=== PATIENT | male | born 1945 | race Caucasian/White ===

== ENCOUNTER 2019-04-12 12:11 | Inpatient (IN) ==
[2019-04-12 12:52] LABS: Basophils # 0.1 K/mcL (0.0-0.2); Basophils % 0.4 %; Eosinophils % 0.1 %; Hematocrit 42.7 % (37.5-50.1); Hemoglobin 14.3 g/dL (12.9-16.9); Immature Granulocytes % 0.7 % (0-4); Lymphocytes # 1.7 K/mcL (0.6-4.6); Lymphocytes % 12.9 %; Mean Corpuscular HGB Conc 33.5 g/dL (31.6-35.5); Mean Corpuscular Hemoglobin 33.4 pg (28.0-33.3); Mean Corpuscular Volume 99.8 fL (83.0-100.0); Mean Platelet Volume 10.3 fL (9.4-12.4); Monocytes # 1.2 K/mcL (0.0-1.3); Monocytes % 8.9 %; Neutrophils # 10.4 K/mcL (1.6-8.9); Platelet Count 358 K/mcL (140-400); Red Blood Count 4.28 M/mcL (4.19-5.50); Red Cell Distribution Width 14.7 % (11.5-14.5); White Blood Count 13.5 K/mcL (4.3-11.1)
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
[2019-04-12 13:11] LABS: Calcium 10.6 mg/dL (8.6-10.3); Potassium 4.6 mEq/L (3.5-5.1)
[2019-04-12] MEDS ORDERED: 0.9 % Sodium Chloride 1,000 ML IVC ONE (13:43)
[2019-04-12] MEDS ORDERED: Nicotine 21 MG PATCH.TD24 TD STA (14:03)
[2019-04-12] MEDS ORDERED: Ondansetron 4 MG/2 ML VIAL IVP PRN (15:35)
[2019-04-12] MEDS ORDERED: Naloxone 0.4 MG/ML INJ IVP PRN (15:35)
[2019-04-12] MEDS ORDERED: ALPRAZolam 1 MG TABLET PO PRN (15:40)
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
--- NOTE | 2019-04-12 16:22 | Electrocardiograph Report ---
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
[2019-04-12] MEDS: Sodium Bicarbonate 75 MEQ in 0.45 % Sodium Chloride 1,000 ML IVC SCH (17:06)
[2019-04-12] MEDS: *HR* Heparin 5,000 UNIT/ML VIAL SQ SCH (17:06)
[2019-04-12] MEDS: *HR* HYDROcodone/Acet 5/325 mg TABLET PO PRN (17:55)
[2019-04-12] MEDS: Isosorbide MONOnitrate (24 HR) 30 MG TAB.ER.24H PO SCH (20:17)
[2019-04-13 02:24] LABS: Bilirubin,Urine Moderate (Negative); Blood,Urine Large (Negative); Color,Urine Red (Yellow); Glucose,Urine (UA) Normal (Normal); Ketones,Urine 40 mg/dL (Negative); Leukocyte Esterase,Urine Trace (Negative); Nitrite,Urine Negative (Negative); Protein,Urine 100 mg/dL (Neg-Trace); Specific Gravity,Urine 1.012 (1.010-1.025); Urobilinogen,Urine Normal (Normal)
[2019-04-13 02:26] LABS: Clarity,Urine Turbid (Clear)
[2019-04-13] MEDS ORDERED: Haloperidol Lactate 5 MG/ML VIAL IVP ONE (03:23)
[2019-04-13] MEDS ORDERED: *HR* Promethazine 25 MG/ML VIAL IVP ONE ×2 (03:23→21:38)
[2019-04-13] MEDS: Sodium Bicarbonate 75 MEQ in 0.45 % Sodium Chloride 1,000 ML IVC SCH ×4 (03:37→22:16)
[2019-04-13 05:41] LABS: Albumin 3.9 g/dL (3.5-5.7); Albumin/Globulin Ratio 1.4 (1.1-2.2); Bilirubin,Total 0.6 mg/dL (0.3-1.0); Calcium 9.6 mg/dL (8.6-10.3); Globulin 2.8 g/dL (2.4-3.5); Magnesium 2.1 mg/dL (1.6-2.6); Potassium 4.1 mEq/L (3.5-5.1); Total Protein 6.7 g/dL (6.4-8.9)
[2019-04-13] MEDS: *HR* Heparin 5,000 UNIT/ML VIAL SQ SCH ×2 (05:46→18:19)
[2019-04-13] MEDS: *HR* HYDROcodone/Acet 5/325 mg TABLET PO PRN ×2 (08:16→18:19)
[2019-04-13] MEDS: FLUoxetine 20 MG CAPSULE PO SCH (08:17)
[2019-04-13] MEDS: Diltiazem CD (24hr) 120 MG CAPSULE PO SCH (08:17)
[2019-04-13] MEDS: Isosorbide MONOnitrate (24 HR) 30 MG TAB.ER.24H PO SCH ×2 (08:17→20:39)
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
[2019-04-13] MEDS: cefTRIAXone 1,000 MG in Water for inj. (sterile) 10 ML IVP SCH ×2 (13:11→13:49)
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
[2019-04-13] MEDS ORDERED: *HR* LORazepam 2 MG/ML VIAL IVP ONE ×2 (13:39→14:02)
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
[2019-04-14 02:40] LABS: Basophils % 0.4 %; Eosinophils # 0.1 K/mcL (0.0-0.6); Eosinophils % 0.5 %; Immature Granulocytes % 0.8 % (0-4); Lymphocytes # 2.1 K/mcL (0.6-4.6); Lymphocytes % 19.1 %; Mean Corpuscular HGB Conc 33.8 g/dL (31.6-35.5); Mean Corpuscular Hemoglobin 33.5 pg (28.0-33.3); Mean Corpuscular Volume 99.2 fL (83.0-100.0); Mean Platelet Volume 10.6 fL (9.4-12.4); Monocytes # 1.1 K/mcL (0.0-1.3); Monocytes % 10.1 %; Neutrophils # 7.6 K/mcL (1.6-8.9); Platelet Count 321 K/mcL (140-400); Red Blood Count 3.73 M/mcL (4.19-5.50); Red Cell Distribution Width 14.7 % (11.5-14.5); Segmented Neutrophils % 69.1 %
[2019-04-14 02:46] LABS: Hemoglobin 12.5 g/dL (12.9-16.9)
[2019-04-14 02:57] LABS: Calcium 9.3 mg/dL (8.6-10.3); Magnesium 1.9 mg/dL (1.6-2.6); Phosphorous 2.2 mg/dL (2.7-4.5); Potassium 3.7 mEq/L (3.5-5.1)
[2019-04-14] MEDS: *HR* Heparin 5,000 UNIT/ML VIAL SQ SCH (05:14)
[2019-04-14] MEDS: Sodium Bicarbonate 75 MEQ in 0.45 % Sodium Chloride 1,000 ML IVC SCH (06:12)
[2019-04-14] MEDS ORDERED: *HR* Metoprolol 5 MG/5 ML VIAL IVP ONE (08:50)
[2019-04-14] MEDS: *HR* HYDROcodone/Acet 5/325 mg TABLET PO PRN ×2 (09:11→18:13)
[2019-04-14] MEDS: Isosorbide MONOnitrate (24 HR) 30 MG TAB.ER.24H PO SCH ×3 (09:12→19:57)
[2019-04-14] MEDS: FLUoxetine 20 MG CAPSULE PO SCH ×2 (09:12→09:33)
[2019-04-14] MEDS: cefTRIAXone 1,000 MG in Water for inj. (sterile) 10 ML IVP SCH (09:12)
[2019-04-14] MEDS: Diltiazem CD (24hr) 120 MG CAPSULE PO SCH ×3 (09:14→11:39)
[2019-04-14] MEDS ORDERED: Haloperidol Lactate 5 MG/ML VIAL IVP ONE (09:31)
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
[2019-04-14] MEDS ORDERED: *HR* Morphine 2 MG/ML SYRINGE IVP ONE (09:38)
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
--- NOTE | 2019-04-14 11:10 | Palliative Progress Note ---
Date of Encounter: 04/14/19 Time of Encounter: 10:15 - Assessment and plan (1) Cancer associated pain Current Visit: Yes Status: Acute Assessment and plan: Patient appears comfortable, denies pain for me at present. Continue [place] as ordered. Utilized x2 last 24 hours. (2) Goals of care, counseling/discussion Current Visit: Yes Status: Acute Assessment and plan: Yuridia Brown - listed as contact for this patient did return my call. Began goals of care discussion, however, Yuridia did reveal to me that she is NOT the patient's power of cocoa mill operator and that he does not have any adv directive in place. States that she can no longer participate in his care, and states that none of his children are capable as well. She is supposed to provide me their names and numbers to contact, as patient is still altered, and we need further goals of care discussed. He had hospice in place - however, code status here is DNR/DNI, and he is still receiving fairly aggressive care for cardiac issues. D/W Dr. Long. Will attempt to contact family when she provides me that information. (3) Generalized weakness Current Visit: Yes Status: Acute (4) Metastatic disease Current Visit: Yes Status: Acute (5) Palliative care encounter Current Visit: Yes Status: Acute (6) Rhabdomyolysis Current Visit: Yes Status: Acute Qualifiers: Rhabdomyolysis type: non-traumatic Qualified Code(s): M62.82 - Rhabdomyolysis - Time Spent With Patient Total time spent is greater than 50% in coordination of care (as documented) at patient's floor/unit and/or counseling patient: - Subjective Interval history: Patient went into afib during the night and started on Cardizem drip. Heart rate improved. He remains pleasantly confused. Urology consult noted - indwelling catheter was inserted. Patient denies pain at present. No family present - Constitutional Vitals: Abnormal lab results WBC 13.5 K/mcL (4.3-11.1) H 04/12/19 12:24 RBC 3.73 M/mcL (4.19-5.50) L 04/14/19 02:13 Hgb 12.5 g/dL (12.9-16.9) L D 04/14/19 02:13 Hct 37.0 % (37.5-50.1) L 04/14/19 02:13 MCH 33.5 pg (28.0-33.3) H 04/14/19 02:13 RDW 14.7 % (11.5-14.5) H 04/14/19 02:13 10.4 K/mcL (1.6-8.9) H 04/12/19 12:24 Carbon Dioxide 20 mEq/L (23-29) L 04/13/19 04:19 BUN 35 mg/dL (8-23) H 04/14/19 02:13 1.90 mg/dL (0.70-1.30) H 04/14/19 02:13 Est GFR ( Amer) 42 (> 60) L 04/14/19 02:13 Est GFR (Non-Af Amer) 35 (> 60) L 04/14/19 02:13 301 (280-300) H 04/13/19 04:19 Calcium 10.6 mg/dL (8.6-10.3) H 04/12/19 12:24 Phosphorus 2.2 mg/dL (2.7-4.5) L 04/14/19 02:13 AST 57 Units/L (13-39) H 04/13/19 04:19 124 Units/L (34-104) H 04/13/19 04:19 734 Units/L (30-223) H 04/14/19 02:13 0.04 ng/mL (< 0.04) H* 04/14/19 09:55 Ur Specimen Adequacy See below A 04/13/19 01:47 Red (Yellow) A 04/13/19 01:47 Turbid (Clear) A 04/13/19 01:47 100 mg/dL (Neg-Trace) H 04/13/19 01:47 40 mg/dL (Negative) H 04/13/19 01:47 Large (Negative) H 04/13/19 01:47 Moderate (Negative) H 04/13/19 01:47 Ur Leukocyte Esterase Trace (Negative) H 04/13/19 01:47 Ur Culture Indicated? YES (NO) A 04/13/19 01:47 General appearance: Present: no acute distress - Respiratory Respiratory exam: Present: decreased breath sounds, CTAB - Cardiovascular Cardiovascular exam: Present: irregular rhythm - GI/Abdominal GI/Abdominal exam: Present: normal bowel sounds, soft - Additional comments: Reed with blood tinged urine - Extremities Exam Extremities exam: Present: normal capillary refill, normal inspection Palliative Quality Palliative Quality: Screen for Code Status: NA (Patient unable to participate in this discussion r/t mental status), Screen for Goals of Care: NA, Screen for Pain: Yes, If Pain Regimen Started, Initiate Bowel Regimen: NA, Screen for Nausea/Vomitting: Yes Code Status: 04/12/19 15:35 Resuscitation Status: Active [RES] Routine Comment: Resuscitation Status: [id number] - Labs CBC & Chem 7: 04/14/19 02:13 04/14/19 02:13 Labs: Laboratory Results - last 24 hr 04/14/19 04/14/19 04/14/19 02:13 02:13 02:13 WBC 11.0 RBC 3.73 L Hgb 12.5 L D Hct 37.0 L MCV 99.2 MCH 33.5 H MCHC 33.8 RDW 14.7 H Plt Count 321 MPV 10.6 Immature Gran % 0.8 Seg Neutrophils % 69.1 Lymphocytes % 19.1 Monocytes % 10.1 Eosinophils % 0.5 Basophils % 0.4 Neutrophils # 7.6 Lymphocytes # 2.1 Monocytes # 1.1 Eosinophils # 0.1 Basophils # 0.0 Sodium 140 Potassium 3.7 Chloride 105 Carbon Dioxide 23 BUN 35 H Creatinine 1.90 H Est GFR ( Amer) 42 L Est GFR (Non-Af Amer) 35 L BUN/Creatinine Ratio 18 Glucose 90 Calculated Osmolality 298 Calcium 9.3 Phosphorus 2.2 L Magnesium 1.9 Creatine Kinase 734 H Troponin I 04/14/19 09:55 WBC RBC Hgb Hct MCV MCH MCHC RDW Plt Count MPV Immature Gran % Seg Neutrophils % Lymphocytes % Monocytes % Eosinophils % Basophils % Neutrophils # Lymphocytes # Monocytes # Eosinophils # Basophils # Sodium Potassium Chloride Carbon Dioxide BUN Creatinine Est GFR ( Amer) Est GFR (Non-Af Amer) BUN/Creatinine Ratio Glucose Calculated Osmolality Calcium Phosphorus Magnesium Creatine Kinase Troponin I 0.04 H* Consult Discharge Plan - Plan Referrals: NONE,PCP [Primary Care Provider] -
[2019-04-14] MEDS ORDERED: Aspirin 325 MG TABLET PO ONE (11:35)
[2019-04-14] MEDS ORDERED: Sodium Bicarbonate 75 MEQ in 0.45 % Sodium Chloride 1,000 ML IVC SCH (11:45)
[2019-04-14] MEDS ORDERED: Perflutren Lipid Microsphere 1.3 ML in 0.9 % Sodium Chloride 8.7 ML IVP ONE (12:12)
--- NOTE | 2019-04-14 14:10 | Electrocardiograph Report ---
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
[2019-04-14] MEDS: ALPRAZolam 1 MG TABLET PO SCH ×2 (16:38→19:56)
--- NOTE | 2019-04-14 23:40 | Nephrology Progress Note ---
Date of Encounter: 04/14/19 Time of Encounter: 12:00 - Assessment and Plan (1) MANUEL (acute kidney injury) Current Visit: No Status: Resolved SCr improving at 1.9, GFR 35 UOp noted at 900cc in the past 24hrs CPK improving in the 700s [place] to continue IVF if IV access feasible while awaiting family to decide on goals of care Can encourage po fluids instead Continue to avoid nephrotoxins if possible (2) Rhabdomyolysis Current Visit: Yes Status: Acute As above Qualifiers: Rhabdomyolysis type: non-traumatic Qualified Code(s): M62.82 - Rhabdomyolysis (3) Metastatic disease Current Visit: Yes Status: Acute Palliative care on board, recs appreciated Subjective Interval history: pt seen and examined with ex- at bedside who promptly informed me that she was not the POA and was waiting of this kids to make a decision once contacted by palliative care team. Ex- was also upset that pt was not eating and has IV line attempts, felt should be comfortable. Sitter present. Pt noted very calm not did not participate in discussion at all. Case discussed with Dr Long. Objective - Vital Signs Vital signs: Vital Signs Temp Pulse Resp BP Pulse Ox 04/14/19 22:23 97.6 F 76 16 160/76 91 04/14/19 15:17 98.4 F 103 119/84 92 04/14/19 11:01 98.4 F 79 130/89 92 04/14/19 08:52 158 18 152/76 04/14/19 08:39 187 148/72 04/14/19 08:09 180 18 140/79 04/14/19 07:30 149 18 113/71 04/14/19 07:22 98.0 F 195 20 131/85 04/14/19 07:00 97.8 F 194 18 151/87 90 04/14/19 05:03 97.7 F 94 18 197/71 94 04/14/19 03:02 98.5 F 83 16 178/79 95 04/14/19 01:43 99.6 F 98 18 147/67 95 Intake and Output 04/14/19 04/14/19 04/14/19 07:59 15:59 23:59 Intake Total 120 / 149 29 / 149 Output Total 500 / 1000 500 / 1000 Balance 120 / -851 -471 / -851 -500 / -851 Intake: IV Fluids Cardizem 50 MG In 0.9 % Sodium Chloride 40 ML @ 5 MG/HR 5 mls/ hr IVC CONT TRISH Rx#:[id number] Rocephin 1,000 MG In Water for inj. (sterile) 10 ML @ 600 mls/ hr IVP DAILY TRISH Rx#:[id number] Oral 120 / 120 Output: Catheter 500 / 1000 500 / 1000 Other: Weight 74.1 kg Patient Weight 04/14/19 23:59 Weight 74.1 kg - General Appearance General appearance: Present: chronically ill, frail EENT: Present: ATNC, mucous membranes dry Neck: Present: no JVD, supple Respiratory: Present: clear (ant bilat) Cardiology: Present: no edema, normal S1, normal S2 Gastrointestinal: Present: no tenderness, no guarding Integumentary: Present: warm and dry Neurologic: Present: disoriented Musculoskeletal: Present: no deformities Psychiatric: Present: cooperative - Lab 04/14/19 02:13 04/14/19 02:13 Consult Discharge Plan - Plan Referrals: NONE,PCP [Primary Care Provider] -
[2019-04-15] MEDS ORDERED: Haloperidol Lactate 5 MG/ML VIAL IVP ONE (01:42)
[2019-04-15] MEDS ORDERED: *HR* Promethazine 25 MG/ML VIAL IVP ONE (01:42)
--- NOTE | 2019-04-15 04:55 | Event Note ---
Date of Encounter: 04/14/19 Time of Encounter: 19:52 Alerted by patient's nurse LILA Su that patient had two different orders for Seroquel, one for 25 mg by mouth at bedtime and the other for 25 mg by mouth twice a day. At bedtime ordered DC'd. Alerted at 22:15 the patient was very restless and trying to pull at his catheter and IV. Patient was also trying to crawl out of bed. Nurse reported patient was given Seroquel and Xanax between 19:45 and 20:00 but was ineffective. Vital signs at the time: 160/76 BP, 97.6 temporal, heart rate 93, respiration rate 20, 92% SPO2 on room air. Went to see the pt. Family was present and expressed concern regarding pts. Xanax order. Family stated that the pt. has taken Xanax for many years and can become combative at times. I verified that the current order is what the pt. is supposed to take at home. I discussed giving the pt. IVP Haldol and Phenergan for his agitation which they agreed to. Pts. family also stated that the pts. daughter yesterday and they informed him of this but they are unsure if he comprehends. Alerted by nurse at 01:38 that patient was becoming more combative and pulling it catheter. Order placed preserve 0.5 mg IVP Haldol and 12.5 mg IVP Phenergan to be given together. In checking up on the pt. after administration, the nurse reported that the pt. was no longer agitated but was still not asleep. Nurse instructed to continue monitoring the pt. closely and alert me immediately of any adverse or behavioral changes.
[2019-04-15 06:45] LABS: Basophils % 0.4 %; Eosinophils # 0.1 K/mcL (0.0-0.6); Eosinophils % 1.3 %; Hematocrit 41.6 % (37.5-50.1); Hemoglobin 13.9 g/dL (12.9-16.9); Immature Granulocytes % 0.6 % (0-4); Lymphocytes # 2.4 K/mcL (0.6-4.6); Lymphocytes % 21.6 %; Mean Corpuscular HGB Conc 33.4 g/dL (31.6-35.5); Mean Corpuscular Hemoglobin 33.2 pg (28.0-33.3); Mean Corpuscular Volume 99.3 fL (83.0-100.0); Mean Platelet Volume 10.8 fL (9.4-12.4); Monocytes % 9.1 %; Neutrophils # 7.3 K/mcL (1.6-8.9); Platelet Count 325 K/mcL (140-400); Red Blood Count 4.19 M/mcL (4.19-5.50); Red Cell Distribution Width 14.7 % (11.5-14.5); White Blood Count 10.9 K/mcL (4.3-11.1)
[2019-04-15 07:07] LABS: Calcium 9.7 mg/dL (8.6-10.3); Magnesium 1.9 mg/dL (1.6-2.6); Phosphorous 2.8 mg/dL (2.7-4.5); Potassium 3.7 mEq/L (3.5-5.1)
--- NOTE | 2019-04-15 09:55 | Palliative Progress Note ---
Date of Encounter: 04/15/19 Time of Encounter: 09:00 - Assessment and plan (1) Agitation Current Visit: Yes Status: Acute Assessment and plan: Seroquel, Xanax given yesterday and patient was still extremely agitated last pm, requiring Haldol and Promethazine given during the night by hospitalist. He may be having terminal delirium. Will d/c seroquel and trial schedule Haldol, transition Xanax to SL Lorazepam. (2) Cancer associated pain Current Visit: Yes Status: Acute Assessment and plan: There is possibility that patient agitation may be r/t poor pain management. Will transition [place] to SL Roxanol, and start low dose Fentanyl patch at 12mcg/hr. (3) Goals of care, counseling/discussion Current Visit: Yes Status: Acute Assessment and plan: Will need to speak with social service in am. Patient's 2 daughter willing to work with them regarding plan for his care, however, appears that noone able to provide his care, and no Medicaid in place for ECF/hospice. (4) Generalized weakness Current Visit: Yes Status: Acute (5) Metastatic disease Current Visit: Yes Status: Acute (6) Palliative care encounter Current Visit: Yes Status: Acute (7) Rhabdomyolysis Current Visit: Yes Status: Acute Qualifiers: Rhabdomyolysis type: non-traumatic Qualified Code(s): M62.82 - Rhabdomyolysis - Time Spent With Patient Total time spent is greater than 50% in coordination of care (as documented) at patient's floor/unit and/or counseling patient: - Subjective Interval history: Patient with increasing agitation during the night, requiring IV Haldol. Sitter at bedside stated that he just recently went to sleep. No family present. After many discussions yesterday with ex-, and speaking to all 4 living children, he was transitioned to DNC. - Constitutional Vitals: Abnormal lab results WBC 13.5 K/mcL (4.3-11.1) H 04/12/19 12:24 RBC 3.73 M/mcL (4.19-5.50) L 04/14/19 02:13 Hgb 12.5 g/dL (12.9-16.9) L D 04/14/19 02:13 Hct 37.0 % (37.5-50.1) L 04/14/19 02:13 MCH 33.5 pg (28.0-33.3) H 04/14/19 02:13 RDW 14.7 % (11.5-14.5) H 04/15/19 05:45 10.4 K/mcL (1.6-8.9) H 04/12/19 12:24 Carbon Dioxide 20 mEq/L (23-29) L 04/13/19 04:19 BUN 28 mg/dL (8-23) H 04/15/19 05:45 1.67 mg/dL (0.70-1.30) H 04/15/19 05:45 Est GFR ( Amer) 49 (> 60) L 04/15/19 05:45 Est GFR (Non-Af Amer) 40 (> 60) L 04/15/19 05:45 301 (280-300) H 04/13/19 04:19 Calcium 10.6 mg/dL (8.6-10.3) H 04/12/19 12:24 Phosphorus 2.2 mg/dL (2.7-4.5) L 04/14/19 02:13 AST 57 Units/L (13-39) H 04/13/19 04:19 124 Units/L (34-104) H 04/13/19 04:19 463 Units/L (30-223) H 04/15/19 05:45 0.04 ng/mL (< 0.04) H* 04/14/19 21:56 Ur Specimen Adequacy See below A 04/13/19 01:47 Red (Yellow) A 04/13/19 01:47 Turbid (Clear) A 04/13/19 01:47 100 mg/dL (Neg-Trace) H 04/13/19 01:47 40 mg/dL (Negative) H 04/13/19 01:47 Large (Negative) H 04/13/19 01:47 Moderate (Negative) H 04/13/19 01:47 Ur Leukocyte Esterase Trace (Negative) H 04/13/19 01:47 Ur Culture Indicated? YES (NO) A 04/13/19 01:47 General appearance: Present: no acute distress - Respiratory Respiratory exam: Present: decreased breath sounds, CTAB - Cardiovascular Cardiovascular exam: Present: +S1, +S2 - GI/Abdominal GI/Abdominal exam: Present: normal bowel sounds, soft - Additional comments: Urine clearer than yesterday, but still pink tinged - Extremities Exam Extremities exam: Present: normal capillary refill, normal inspection - Neurological Exam Additional comments: Sleeping soundly at present. I did not awaken for neuro exam. - Skin Skin exam: Present: dry, pallor, warm Palliative Quality Palliative Quality: Screen for Code Status: NA (Patient unable to participate in this discussion r/t mental status), Screen for Goals of Care: NA, Screen for Pain: Yes, If Pain Regimen Started, Initiate Bowel Regimen: NA, Screen for Nausea/Vomitting: Yes Code Status: 04/12/19 15:35 Resuscitation Status: Active [RES] Routine Comment: Resuscitation Status: [id number] 04/14/19 16:32 DNR [Resuscitation Status: Active] [RES] Routine Comment: Resuscitation Status: DNR-Comfort Care - Labs CBC & Chem 7: 04/15/19 05:45 04/15/19 05:45 Labs: Laboratory Results - last 24 hr 04/14/19 04/14/19 04/14/19 09:55 16:17 21:56 WBC RBC Hgb Hct MCV MCH MCHC RDW Plt Count MPV Immature Gran % Seg Neutrophils % Lymphocytes % Monocytes % Eosinophils % Basophils % Neutrophils # Lymphocytes # Monocytes # Eosinophils # Basophils # Sodium Potassium Chloride Carbon Dioxide BUN Creatinine Est GFR ( Amer) Est GFR (Non-Af Amer) BUN/Creatinine Ratio Glucose Calculated Osmolality Calcium Phosphorus Magnesium Creatine Kinase Troponin I 0.04 H* 0.04 H* 0.04 H* 04/15/19 04/15/19 04/15/19 05:45 05:45 05:45 WBC 10.9 RBC 4.19 Hgb 13.9 Hct 41.6 MCV 99.3 MCH 33.2 MCHC 33.4 RDW 14.7 H Plt Count 325 MPV 10.8 Immature Gran % 0.6 Seg Neutrophils % 67.0 Lymphocytes % 21.6 Monocytes % 9.1 Eosinophils % 1.3 Basophils % 0.4 Neutrophils # 7.3 Lymphocytes # 2.4 Monocytes # 1.0 Eosinophils # 0.1 Basophils # 0.0 Sodium 142 Potassium 3.7 Chloride 102 Carbon Dioxide 24 BUN 28 H Creatinine 1.67 H Est GFR ( Amer) 49 L Est GFR (Non-Af Amer) 40 L BUN/Creatinine Ratio 17 Glucose 94 Calculated Osmolality 299 Calcium 9.7 Phosphorus 2.8 Magnesium 1.9 Creatine Kinase 463 H Troponin I - Impressions Impressions Echocardiogram 04/14/19 08:05 Impressions: LVEF 60-65%. Normal LV chamber size, wall thickness and function. Atypical septal motion consistent with post-operative status. Normal right ventricular structure and function. Mild tricuspid regurgitation. No pulmonary hypertension. Left Ventricular Wall Motion: Rest Echo Findings All wall segments showed normal motion. Findings: Study Quality * Technically sub-optimal due to poor echocardiographic windows. ECG Findings * Normal sinus rhythm. Left Ventricle * LVEF 60-65%. * Normal LV chamber size, wall thickness and function. * Atypical septal motion consistent with post-operative status. Right Ventricle * Normal right ventricular structure and function. Left Atrium * Normal left atrial size. Right Atrium * Mildly dilated right atrium. Interatrial Septum * Interatrial septum not well evaluated. Aortic Valve * Aortic valve not well visualized. * No aortic regurgitation. * No aortic stenosis. Mitral Valve * Mild mitral annular calcification * Mildly thickened mitral valve leaflets. * No mitral regurgitation. * No mitral stenosis. Tricuspid Valve * Normal tricuspid valve structure. * Mild tricuspid regurgitation. * No pulmonary hypertension. Pulmonic Valve * Pulmonic valve is not well visualized. * No pulmonic regurgitation. Aorta * Normally sized aortic root. Pericardium * The pericardium appears normal. IVC * Normal IVC dimensions and inspiratory collapse. Pulmonary Artery * Pulmonary artery not well visualized. Consult Discharge Plan - Plan Referrals: NONE,PCP [Primary Care Provider] -
[2019-04-15] MEDS ORDERED: *HR* FentaNYL PATCH 12 MCG PATCH TD SCH (10:15)
[2019-04-15] MEDS ORDERED: Haloperidol Oral Conc 10 MG/5 ML UDC PO SCH (10:15)
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
[2019-04-15] MEDS: Haloperidol Oral Conc 10 MG/5 ML UDC PO SCH ×2 (11:24→18:02)
[2019-04-15] MEDS: cefTRIAXone 1,000 MG in Water for inj. (sterile) 10 ML IVP SCH (11:25)
[2019-04-15] MEDS: ALPRAZolam 1 MG TABLET PO SCH ×3 (14:52→22:35)
[2019-04-15] MEDS: Diltiazem CD (24hr) 120 MG CAPSULE PO SCH (15:02)
[2019-04-15] MEDS: FLUoxetine 20 MG CAPSULE PO SCH (15:02)
[2019-04-15] MEDS: Isosorbide MONOnitrate (24 HR) 30 MG TAB.ER.24H PO SCH ×2 (15:02→22:35)
[2019-04-15] MEDS: OXYCODONE Oral CONC 10 MG/0.5 ML ORAL.SYG SL PRN (18:03)
--- NOTE | 2019-04-15 18:17 | Nephrology Progress Note ---
Date of Encounter: 04/15/19 Time of Encounter: 13:00 - Assessment and Plan (1) MANUEL (acute kidney injury) Current Visit: No Status: Resolved SCr improving at 1.67, GFR 40 UOp noted at 1000cc in the past 24hrs CPK improving in the 400s Continue to encourage po fluids Continue to avoid nephrotoxins if possible Will sign off, please reconsult prn (2) Rhabdomyolysis Current Visit: Yes Status: Acute As above Qualifiers: Rhabdomyolysis type: non-traumatic Qualified Code(s): M62.82 - Rhabdomyolysis (3) Metastatic disease Current Visit: Yes Status: Acute Palliative care on board and now DNRCC Subjective Interval history: Interim events noted, pt 's family have decided to make pt's status DNRCC. Pt resting today and does not want to be disturbed. Objective - Vital Signs Vital signs: Vital Signs Temp Pulse Resp BP Pulse Ox 04/15/19 07:22 98.5 F 98 120/98 04/15/19 04:18 97.8 F 76 15 134/86 90 04/14/19 22:23 97.6 F 76 16 160/76 91 Intake and Output 04/15/19 04/15/19 04/15/19 07:59 15:59 23:59 Output Total 650 / 1450 800 / 1450 Balance -650 / -1450 -800 / -1450 Output: Catheter 650 / 1450 800 / 1450 Other: Meal Lunch Percent of Meal Consumed 0% Weight 76 kg Patient Weight 04/15/19 23:59 Weight 76 kg - General Appearance General appearance: Present: chronically ill, fatigue, frail EENT: Present: ATNC, mucous membranes dry Neck: Present: no JVD, supple Additional Comments: good areation ant bilat Cardiology: Present: no edema, normal S1, normal S2 Gastrointestinal: Present: no tenderness, no guarding Integumentary: Present: warm and dry Neurologic: Present: confused, disoriented Musculoskeletal: Present: no deformities Psychiatric: Present: cooperative - Lab 04/15/19 05:45 04/15/19 05:45 Most recent lab results 04/15/19 05:45 Calcium 9.7 Phosphorus 2.8 Magnesium 1.9 Consult Discharge Plan - Plan Referrals: NONE,PCP [Primary Care Provider] -
[2019-04-16] MEDS: Haloperidol Oral Conc 10 MG/5 ML UDC PO SCH ×2 (01:10→05:04)
[2019-04-16] MEDS: OXYCODONE Oral CONC 10 MG/0.5 ML ORAL.SYG SL PRN ×2 (01:11→05:03)
--- NOTE | 2019-04-16 03:36 | Event Note ---
Date of Encounter: 04/15/19 Time of Encounter: 20:22 Alerted by pts. nurse LILA Su that the pt. was having agonal breathing with 40 second pauses after 5-10 breaths. Pt. admitted for rhabdomyolysis, MANUEL on CKD, hx of malignancy with metastatic disease, and failure to thrive. Pt. was agitated last night and required Haldol and Phenergan to help calm him. Went to see the pt. with family present. Pts. CODE STATUS changed to DNRCC and Palliative Care is following this pt. Bed Management called for transfer of the pt. from E to a Palliative Care room on 2A55. Family stated they just want the pt. to be comfortable. I assured the family that the 2A55 was a room where family could be with the pt. and be comfortable. Family expressed understanding and appreciation for this. Nurse instructed of the pts. move to 2A55 and was instructed to continue monitoring the pt. closely and alert me immediately of any adverse changes.
[2019-04-16 08:29] VITALS: BP 133/77
--- NOTE | 2019-04-16 09:40 | Event Note ---
Date of Encounter: 04/16/19 Time of Encounter: 09:15 Patient less responsive today with periods of apnea. D/W family and Dr. Dailey. Patient can transition to inpt hospice today. Family in agreement. D/w hospitalist.
[2019-04-16] MEDS ORDERED: OXYCODONE Oral CONC 10 MG/0.5 ML ORAL.SYG SL PRN (09:42)
[2019-04-16] MEDS: cefTRIAXone 1,000 MG in Water for inj. (sterile) 10 ML IVP SCH (10:18)
[2019-04-16] MEDS: Isosorbide MONOnitrate (24 HR) 30 MG TAB.ER.24H PO SCH ×2 (10:24→10:40)
[2019-04-16] MEDS: Diltiazem CD (24hr) 120 MG CAPSULE PO SCH ×2 (10:24→10:40)
[2019-04-16] MEDS: FLUoxetine 20 MG CAPSULE PO SCH ×2 (10:24→10:40)
[2019-04-16] MEDS ORDERED: Haloperidol Oral Conc 10 MG/5 ML UDC PO SCH (12:00)
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
== END 2019-04-16 12:26 | disposition hospice, inpatient (51) | DRG 558 ==
LOC: EMEROOARM 12:11 → 3BNU 12:11 → SUATTDRO 15:35 → 3BNU 15:48 → 2NENU 04-14 10:39 → 2ANU 04-15 21:55
PROVIDERS: ADMIT Internal Medicine Nephrology; ATTEND Internal Medicine

== ENCOUNTER 2019-04-16 11:53 | Inpatient (IN) ==
[2019-04-16] MEDS ORDERED: Bisacodyl 10 MG RECTAL SUPPOSITORY RC PRN (12:14)
[2019-04-16] MEDS: Haloperidol Oral Conc 10 MG/5 ML UDC PO SCH ×2 (13:42→17:52)
--- NOTE | 2019-04-16 14:44 | Palliative - Consult Note ---
Date of Encounter: 04/16/19 Time of Encounter: 14:40 - Assessment and Plan (1) Agitation Current Visit: No Status: Acute Assessment and plan: WIll continue scheduled Haloperidol that was started yesterday afternoon. Continue and monitor. Titrate as needed. (2) Cancer associated pain Current Visit: No Status: Acute Assessment and plan: Continue Fentanyl patch and titrate as needed. Roxanol for breakthrough pain. (3) Metastatic disease Current Visit: No Status: Acute (4) Palliative care encounter Current Visit: No Status: Acute (5) Hospice care Current Visit: Yes Status: Acute Assessment and plan: Transitioned to general inpatient hospice today for agitation, pain and symptom management. He may not survive GIP stay, and condition has declined. If survives, likely will be transitioned home with family. Will follow closely. Palliative-CN HPI - Data of Consult Consult date: 04/16/19 Requesting Physician: Janneth Dailey MD Primary Care Provider: PCP NONE - Consult Narrative History of present illness: Mr. Brown is a 73 year old male with a history of metastatic cancer on home hospice was admitted after found on floor at home. He is currently confused and no family/visitors present, so information taken from chart review. Patient was found on floor by ex-, and she summoned EMS. Brought to hospital and found to have altered mental status, MANUEL, possible UTI and Rhabdomylosis. He has history of metastatic cancer, primary site unknown, but has involvement with prostate, renal, lungs, and bone metastasis. He was treated with IV fluids and atb until cultures were back, urine culture neg. His agitation and confused worsened throughout his stay, requiring trials of SEroquel, Xanax, Haloperidol. Also went into atrial fibrillation, and Cardizem drip was initiated. Cardiology consult completed, and he was able to transition off drip and oral Cardizem dose increased. He did not improve with treatment, however, this continued until family could be reached. Patient has 5 children, one daughter a few days ago. THe other 4 children were contacted, and agreed that patient would not want the amount of care we were providing, and he was transitioned to DNR- comfort care. Telemetry and IV fluids were discontinued. He was started on scheduled Haloperidol,, as he was still extremely agitated. He was transitioned to [facility] care today for symptom management. CC: Janneth Dailey MD - Time Spent with Patient Time: Total time spent is greater than 50% in coordination of care (as documented) at patient's floor/unit and/or counseling patient: Past Med Surg Social Fam HX - Past Medical History Medical history: coronary artery disease, hyperlipidemia, hypertension, myocardial infarction Psychiatric history: anxiety, depression - Past Surgical History Surgical History: cholecystectomy, coronary bypass (CABG), herniorrhaphy, orthopedic, other Additional surgical history: cancer removed face - Social History Smoking Status: Current every day smoker Alcohol use: none Drug use: none - Family History Father Hx Family Cancer: Yes (Lung cancer) Brother Hx Family Cardiac Disorders: Yes (Heart disease) Hx Family Endocrine Disorder: Yes (DM) Medications and Allergies ALPRAZolam [Xanax 1 MG Tablet] 1 mg PO TID PRN 10/19/16 [History] Carvedilol [Coreg] 12.5 mg PO BIDWM 04/12/19 [History] Diltiazem HCl [Diltiazem ER] 120 mg PO DAILY 04/12/19 [History] FLUoxetine HCl [Fluoxetine HCl] 40 mg PO DAILY 04/12/19 [History] Isosorbide MONOnitrate (24 HR) [Imdur] 30 mg PO BID 04/12/19 [History] Meclizine HCl [Verticalm] 25 mg PO Q8H PRN 04/12/19 [History] Allergy/AdvReac Type Severity Reaction Status Date / Time No Known Allergies Allergy Verified 10/19/16 07:10 ROS unobtainable: due to mental status Palliative Care-Exam - Constitutional General appearance: Present: no acute distress - Head Head Exam: Present: normal inspection, normocephalic - Eye Eye exam: Present: normal appearance, PERRL - Respiratory Respiratory exam: Present: decreased breath sounds Additional comments: Breath sounds course throughout. Periods of apnea 8-10 seconds intermittently - Cardiovascular Cardiovascular exam: Present: +S1, +S2 - GI/Abdominal Exam GI/Abdominal exam: Present: diminished bowel sounds, soft - Additional comments: Reed patent with blood tinged urine - Extremities Exam Additional comments: 4+ edema to lower extremities, 3+ to bilateral upper extremities - Neurological Exam Additional comments: Sleeping most of time, will awaken periodically and verbalize to family. Opened eyes with stimulation, did not follow commands - Skin Skin exam: Present: dry, pallor, warm Consult Discharge Plan - Plan Referrals: NONE,PCP [Primary Care Provider] - Palliative Quality Palliative Quality: Screen for Code Status: Yes, Screen for Goals of Care: Yes, Screen for Pain: Yes, If Pain Regimen Started, Initiate Bowel Regimen: NA, Sc reen for Nausea/Vomitting: Yes Code Status: 04/16/19 12:14 Resuscitation Status: Active [RES] Routine Comment: Resuscitation Status: DNR-Comfort Care
[2019-04-16] MEDS: *HR* FentaNYL PATCH 12 MCG PATCH TD SCH (15:05)
[2019-04-16] MEDS: Morphine Sulfate Oral CONC 10 MG/0.5 ML ORAL.SYG SL PRN (16:38)
[2019-04-17] MEDS: Haloperidol Oral Conc 10 MG/5 ML UDC PO SCH ×2 (00:56→07:28)
[2019-04-17] MEDS: Diltiazem CD (24hr) 240 MG CAPSULE PO SCH (08:18)
--- NOTE | 2019-04-17 08:56 | Palliative Progress Note ---
Date of Encounter: 04/17/19 Time of Encounter: 08:45 - Assessment and plan (1) Agitation Current Visit: No Status: Acute Assessment and plan: This has improved and patient has actually refused doses of Haldol. Will transition to PRN and monitor. (2) Cancer associated pain Current Visit: No Status: Acute Assessment and plan: Continue Fentanyl patch, he appears to be tolerating well.. Continue Roxanol for breakthrough pain. Utilized x 1 last 24 hours. He is c/o back pain this am, unable to rate on pain scaled. RN notified. (3) Metastatic disease Current Visit: No Status: Acute (4) Palliative care encounter Current Visit: No Status: Acute (5) Hospice care Current Visit: Yes Status: Acute Assessment and plan: Continue GIP care. He will need discharge plan in place. Will D/W social work. - Time Spent With Patient Total time spent is greater than 50% in coordination of care (as documented) at patient's floor/unit and/or counseling patient: - Subjective Interval history: Patient awake and alert this am, drinking some coffee and attempting to eat breakfast. Oriented to name only. Speech mumbled and difficult to understand. Tachycardic, B/P stable. No family at bedside. - Constitutional General appearance: Present: no acute distress - Respiratory Respiratory exam: Present: decreased breath sounds, CTAB - Cardiovascular Cardiovascular exam: Present: irregular rhythm, tachycardia - GI/Abdominal GI/Abdominal exam: Present: normal bowel sounds, soft - Additional comments: Reed with blood tinged urine. - Extremities Exam Extremities exam: Present: normal capillary refill, normal inspection - Neurological Exam Neurological exam: Present: alert Additional comments: Oriented to name only. Speech mumbled and difficult to understand. Has difficulty following commands. - Skin Skin exam: Present: dry, warm Palliative Quality Palliative Quality: Screen for Code Status: Yes, Screen for Goals of Care: Yes, Screen for Pain: Yes, If Pain Regimen Started, Initiate Bowel Regimen: NA, Screen for Nausea/Vomitting: Yes Code Status: 04/16/19 12:14 Resuscitation Status: Active [RES] Routine Comment: Resuscitation Status: DNR-Comfort Care Consult Discharge Plan - Plan Referrals: NONE,PCP [Primary Care Provider] -
[2019-04-17] MEDS: Morphine Sulfate Oral CONC 10 MG/0.5 ML ORAL.SYG SL PRN ×5 (11:18→23:04)
[2019-04-17] MEDS: Haloperidol Oral Conc 10 MG/5 ML UDC PO PRN ×2 (13:52→22:57)
[2019-04-17] MEDS: Nicotine 21 MG PATCH.TD24 TD SCH (13:52)
[2019-04-17] MEDS ORDERED: Morphine Sulfate Oral CONC 10 MG/0.5 ML ORAL.SYG SL PRN (15:59)
[2019-04-17] MEDS: *HR* LORazepam Oral Conc 2 MG/ML PO PRN (20:11)
[2019-04-17] MEDS: Isosorbide MONOnitrate (24 HR) 30 MG TAB.ER.24H PO SCH (20:11)
[2019-04-18] MEDS: *HR* LORazepam Oral Conc 2 MG/ML PO PRN ×2 (00:17→23:57)
[2019-04-18] MEDS: Diltiazem CD (24hr) 240 MG CAPSULE PO SCH (08:20)
[2019-04-18] MEDS: Isosorbide MONOnitrate (24 HR) 30 MG TAB.ER.24H PO SCH ×2 (08:20→20:30)
[2019-04-18] MEDS: FLUoxetine 20 MG CAPSULE PO SCH (08:20)
[2019-04-18] MEDS: Nicotine 21 MG PATCH.TD24 TD SCH (08:21)
[2019-04-18] MEDS: Morphine Sulfate Oral CONC 10 MG/0.5 ML ORAL.SYG SL PRN ×5 (08:22→23:14)
--- NOTE | 2019-04-18 12:56 | Palliative Progress Note ---
Date of Encounter: 04/18/19 Time of Encounter: 10:30 - Assessment and plan (1) Goals of care, counseling/discussion Current Visit: No Status: Acute Assessment and plan: Patient was admitted to hospice [facility] for management of confusion and agitation. Now patient has improved and being managed by oral medication. Patient no longer meets criteria for GIP. There were extensive goals of care discussions between the patient's family, hospice SW Kay and LYUDMILA Mccollum. Goal is for patient to return home under children care. However, a patient's daughter few days ago, and the family is grieving and in the process of arranging for funerals. It was arranged for patient to remain in [facility] as a respite, to allow for the family to proceed with funerals. Patient will be transitioned to respite today for 5 nights. (2) Hospice care Current Visit: Yes Status: Acute Assessment and plan: Patient was admitted to hospice [facility] for management of confusion and agitation. Now patient has improved and being managed by oral medication. Patient no longer meets criteria for GIP, to be transitioned to 5 nights respite care to accommodate family needs. Expected discharge Tuesday04/23/19. (3) Agitation Current Visit: No Status: Acute Assessment and plan: He was more agitated overnight, received Ativan x2 and Haldol x2. continue current (4) Cancer associated pain Current Visit: No Status: Acute Assessment and plan: Continue Fentanyl patch, he appears to be tolerating well. Continue Roxanol for breakthrough pain. Utilized x 2 last 24 hours. (5) Metastatic disease Current Visit: No Status: Acute - Time Spent With Patient Total time spent is greater than 50% in coordination of care (as documented) at patient's floor/unit and/or counseling patient: 25 - 35 minutes - Subjective Interval history: Patient was sitting in bed, food tray in front of him, he took few bites, but now refusing anything more. He denied pain, SOB, N, V. he endorsed to be feeling very weak and tired. Speech mumbled and difficult to understand. No family at the bedside. - Constitutional Exam: - Constitutional General appearance: Present: no acute distress - Respiratory Respiratory exam: Present: decreased breath sounds, CTAB - Cardiovascular Cardiovascular exam: Present: irregular rhythm, tachycardia - GI/Abdominal GI/Abdominal exam: Present: normal bowel sounds, soft - Additional comments: Reed with blood tinged urine. - Extremities Exam Extremities exam: Present: normal capillary refill, normal inspection - Neurological Exam Neurological exam: Present: alert Additional comments: Oriented to name only. Speech mumbled and difficult to understand. Has difficulty following commands. - Skin Skin exam: Present: dry, warm Palliative Quality Palliative Quality: Screen for Code Status: Yes, Screen for Goals of Care: Yes, Screen for Pain: Yes, If Pain Regimen Started, Initiate Bowel Regimen: NA, Screen for Nausea/Vomitting: Yes Code Status: 04/16/19 12:14 Resuscitation Status: Active [RES] Routine Comment: Resuscitation Status: DNR-Comfort Care Consult Discharge Plan - Plan Referrals: NONE,PCP [Primary Care Provider] -
[2019-04-19] MEDS: Morphine Sulfate Oral CONC 10 MG/0.5 ML ORAL.SYG SL PRN ×6 (06:09→21:59)
[2019-04-19] MEDS: Nicotine 21 MG PATCH.TD24 TD SCH (08:45)
[2019-04-19] MEDS: Diltiazem CD (24hr) 240 MG CAPSULE PO SCH (08:47)
[2019-04-19] MEDS: Isosorbide MONOnitrate (24 HR) 30 MG TAB.ER.24H PO SCH ×2 (08:47→21:59)
[2019-04-19] MEDS: FLUoxetine 20 MG CAPSULE PO SCH (08:48)
[2019-04-19] MEDS ORDERED: *HR* FentaNYL PATCH 12 MCG PATCH TD SCH (14:00)
--- NOTE | 2019-04-19 14:03 | Palliative Progress Note ---
Date of Encounter: 04/19/19 Time of Encounter: 10:00 - Assessment and plan (1) Goals of care, counseling/discussion Current Visit: No Status: Acute Assessment and plan: As of yesterday, pt was transitioned to respite care to allow family to grieve and arrange for of one of pt's daughter. Goal is to return home on Monday 04/23. Discussed with family and hospice [facility] Villanue[facility], they have come up with a plan to take care of pt at home. Today however, pt appears to be declining, refusing POs, pain worsening. Will continue to evaluate daily. (2) Hospice care Current Visit: Yes Status: Acute Assessment and plan: Patient was admitted to hospice [facility] for management of confusion and agitation. Now patient has improved and being managed by oral medication. Patient no longer meets criteria for GIP, to be transitioned to 5 nights respite care to accommodate family needs. Expected discharge Tuesday04/23/19. (3) Agitation Current Visit: No Status: Acute Assessment and plan: He was more agitated overnight, received Ativan x3 in 24 hrs. continue current (4) Cancer associated pain Current Visit: No Status: Acute Assessment and plan: Pain appears to be worsening, Roxanol prn needs increased from 2 to 6 doses in 24hrs. Will increase Fentanyl patch to 25mcg. Continue Roxanol for breakthrough pain. (5) Metastatic disease Current Visit: No Status: Acute - Time Spent With Patient Total time spent is greater than 50% in coordination of care (as documented) at patient's floor/unit and/or counseling patient: 25 - 35 minutes - Subjective Interval history: Patient more lethargic today, does not want to be disturbed. Family present at the bedside, he did not want to eat or drink this morning. Refusing all medication, except pain meds. His prn need have increased to about q3-4 hrs, 6 doses in 24hrs. Will increase fentanyl patch to 25mcg today. - Constitutional Exam: - Constitutional Exam: - Constitutional General appearance: Present: no acute distress - Respiratory Respiratory exam: Present: decreased breath sounds, CTAB - Cardiovascular Cardiovascular exam: Present: irregular rhythm, tachycardia - GI/Abdominal GI/Abdominal exam: Present: normal bowel sounds, soft - Additional comments: Reed with blood tinged urine. - Extremities Exam Extremities exam: Present: normal capillary refill, normal inspection - Neurological Exam Neurological exam: Present: alert Additional comments: Oriented to name only. Speech mumbled and difficult to understand. Has difficulty following commands. - Skin Skin exam: Present: dry, warm Palliative Quality Palliative Quality: Screen for Code Status: Yes, Screen for Goals of Care: Yes, Screen for Pain: Yes, If Pain Regimen Started, Initiate Bowel Regimen: NA, Screen for Nausea/Vomitting: Yes Code Status: 04/16/19 12:14 Resuscitation Status: Active [RES] Routine Comment: Resuscitation Status: DNR-Comfort Care Consult Discharge Plan - Plan Referrals: NONE,PCP [Primary Care Provider] -
[2019-04-19] MEDS: *HR* FentaNYL PATCH 12 MCG PATCH TD SCH (14:06)
[2019-04-19] MEDS: *HR* LORazepam Oral Conc 2 MG/ML PO PRN ×3 (15:45→19:18)
[2019-04-19] MEDS ORDERED: *HR* FentaNYL PATCH 25 MCG PATCH TD SCH (15:45)
[2019-04-20] MEDS: Morphine Sulfate Oral CONC 10 MG/0.5 ML ORAL.SYG SL PRN ×6 (01:24→20:47)
[2019-04-20] MEDS: Nicotine 21 MG PATCH.TD24 TD SCH (09:08)
[2019-04-20] MEDS: Isosorbide MONOnitrate (24 HR) 30 MG TAB.ER.24H PO SCH (12:40)
[2019-04-20] MEDS: FLUoxetine 20 MG CAPSULE PO SCH (12:40)
[2019-04-20] MEDS: Diltiazem CD (24hr) 240 MG CAPSULE PO SCH (12:40)
[2019-04-20] MEDS: *HR* LORazepam Oral Conc 2 MG/ML PO PRN (16:49)
[2019-04-20] MEDS: Haloperidol Oral Conc 10 MG/5 ML UDC PO PRN (20:48)
[2019-04-21] MEDS: Isosorbide MONOnitrate (24 HR) 30 MG TAB.ER.24H PO SCH ×3 (00:42→20:11)
[2019-04-21] MEDS: Morphine Sulfate Oral CONC 10 MG/0.5 ML ORAL.SYG SL PRN ×9 (01:07→23:06)
[2019-04-21] MEDS: Haloperidol Oral Conc 10 MG/5 ML UDC PO PRN ×3 (06:02→18:53)
[2019-04-21] MEDS: Nicotine 21 MG PATCH.TD24 TD SCH (08:57)
[2019-04-21] MEDS: Acetaminophen 650 MG RECTAL SUPP RC PRN (09:05)
[2019-04-21] MEDS: Diltiazem CD (24hr) 240 MG CAPSULE PO SCH (09:05)
[2019-04-21] MEDS: FLUoxetine 20 MG CAPSULE PO SCH (09:05)
--- NOTE | 2019-04-21 09:57 | Palliative Progress Note ---
Date of Encounter: 04/21/19 Time of Encounter: 09:00 - Assessment and plan (1) Fever Current Visit: Yes Status: Acute Assessment and plan: Called regarding patients fever this AM. Temp - 102, tylenol given, now 99.5. Will continue to follow. Patient has declined and is minimally responsive this AM. PO meds held for now. (2) Cancer associated pain Current Visit: No Status: Acute Assessment and plan: At present patient is calm. Minimal responsiveness. Has Fentanyl patch at 25mcg and Morphine for BTP. Continue regimen. Assess daily. (3) Agitation Current Visit: No Status: Acute Assessment and plan: AT present, patient is resting. Received dose of Haldol this AM. Continue to assess. (4) Goals of care, counseling/discussion Current Visit: Yes Status: Acute Assessment and plan: Mr. Brown is a 73 year old male with a history of metastatic cancer on home hospice was admitted after found on floor at home. He has history of metastatic cancer, primary site unknown. Is now a respite patient. Patient now minimally responsive, and requiring Haldol for agitation. Had fever last night of 102. Tylenol started. Attempted to call Yuridia, the patients daughter and give an update but no answer. Patient unable to take po intake now. Will follow. (5) Metastatic disease Current Visit: No Status: Acute (6) Palliative care encounter Current Visit: No Status: Acute - Time Spent With Patient Total time spent is greater than 50% in coordination of care (as documented) at patient's floor/unit and/or counseling patient: 25 - 35 minutes - Subjective Interval history: Called this AM for elevated Temp = 102. Tylenol order given and patient received. Temp now 99.5. Patient on respite stay but has declined and is now suffering terminal fever with delirium overnight that required haldol. Patient cool, legs cool with minimal responsiveness. Attempted to call family. - Constitutional General appearance: Present: mild distress Exam: Respirations shallow, and tachypneic - Head Head exam: Present: atraumatic - Eye Eye exam: Present: PERRL - ENT ENT exam: Present: mucous membranes dry - Respiratory Respiratory exam: Present: rhonchi, tachypnea - Expanded Respiratory Exam Location: rhonchi: Left, Right, Upper - Cardiovascular Cardiovascular exam: Present: +S1, +S2 - GI/Abdominal GI/Abdominal exam: Present: diminished bowel sounds, soft - Additional comments: Reed intact draining dark brown urine - Extremities Exam Additional comments: cool - Neurological Exam Neurological exam: Present: altered - Psychiatric Psychiatric exam: Present: flat affect - Skin Skin exam: Present: pallor Palliative Quality Palliative Quality: Screen for Code Status: Yes, Screen for Goals of Care: Yes, Screen for Pain: Yes, If Pain Regimen Started, Initiate Bowel Regimen: NA, Screen for Nausea/Vomitting: Yes Code Status: 04/16/19 12:14 Resuscitation Status: Active [RES] Routine Comment: Resuscitation Status: DNR-Comfort Care Consult Discharge Plan - Plan Referrals: NONE,PCP [Primary Care Provider] -
[2019-04-21] MEDS: *HR* LORazepam Oral Conc 2 MG/ML PO PRN ×2 (15:07→19:37)
[2019-04-22] MEDS: *HR* LORazepam Oral Conc 2 MG/ML PO PRN ×8 (00:24→20:44)
[2019-04-22] MEDS: Haloperidol Oral Conc 10 MG/5 ML UDC PO PRN ×5 (01:46→20:50)
[2019-04-22] MEDS: Morphine Sulfate Oral CONC 10 MG/0.5 ML ORAL.SYG SL PRN ×16 (01:47→21:26)
[2019-04-22] MEDS: Diltiazem CD (24hr) 240 MG CAPSULE PO SCH (07:47)
[2019-04-22] MEDS: FLUoxetine 20 MG CAPSULE PO SCH (07:47)
[2019-04-22] MEDS: Isosorbide MONOnitrate (24 HR) 30 MG TAB.ER.24H PO SCH (07:47)
[2019-04-22] MEDS: Nicotine 21 MG PATCH.TD24 TD SCH (07:54)
--- NOTE | 2019-04-22 09:20 | Palliative Progress Note ---
Date of Encounter: 04/22/19 Time of Encounter: 09:00 - Assessment and plan (1) Fever Current Visit: Yes Status: Acute Assessment and plan: Patient with terminal fever. Temp now 102.6. Family refusing to have tylenol given. States they were told that is would prolong patients life. Provided long discussion how managing temp will assist in providing comfort. Provided evidence based literatur to family regarding management of fever. Verbalized understanding and approved for it to be given. Turned on bedside fan, removed heavy blankets and turned room air to 70 degrees. (2) Cancer associated pain Current Visit: Yes Status: Acute Assessment and plan: Moaning responsiveness. Has Fentanyl patch at 25mcg and Morphine for BTP. Family reports patient restless and moaning out through night. Will increase morphine to 15mg every 1 hour for pain. (3) Agitation Current Visit: Yes Status: Acute Assessment and plan: Family and nursing report patient pulling at blabkets and moving arms up and down grimacing. Increased Haldol to every 3 hours. Received dose of Haldol this AM. Continue to assess. (4) Goals of care, counseling/discussion Current Visit: Yes Status: Acute Assessment and plan: Mr. Brown is a 73 year old male with a history of metastatic cancer on home hospice was admitted after found on floor at home. He has history of meta static cancer, primary site unknown. Is now a respite patient. Patient now minimally responsive, and requiring Haldol for agitation. Continues to have a fever 102.6 Beside meeting with family to educate on end-life s/s. Family concerned that patient is suffering. I assured them that appropriate medications for comfort have been adjusted and reviewed medications and effects with family. Refreshed hospitality cart and provided support. Family desires for patient to have large doses of pain medications to put him out of his misery. I educated them on the legal law and rule governing medication administration and will continue to medicate based on physical assessment findings and s/s. Verbalized understanding. Will continue to follow. (5) Metastatic disease Current Visit: No Status: Acute (6) Palliative care encounter Current Visit: No Status: Acute - Time Spent With Patient Total time spent is greater than 50% in coordination of care (as documented) at patient's floor/unit and/or counseling patient: 25 - 35 minutes - Subjective Interval history: Patient elevated Temp = 102.6. Family at bedside. Patient unresponsive, right foot mottled and cold. Upper extremities warm from fever. Conducted bedside family update. - Constitutional Vitals: Temp. 102.6, HR 110, B/P 80/51, RA sat = 60%. General appearance: Present: no acute distress - Head Head exam: Present: atraumatic - Eye Eye exam: Present: PERRL - ENT ENT exam: Present: mucous membranes dry - Respiratory Respiratory exam: Present: decreased breath sounds - Expanded Respiratory Exam Location: decreased breath sounds: Left, Right, Lower - Cardiovascular Cardiovascular exam: Present: +S1, +S2, tachycardia - GI/Abdominal GI/Abdominal exam: Present: diminished bowel sounds, soft - Rectal Rectal exam: Present: deferred - Extremities Exam Extremities exam: Present: tenderness (Right foor mottled and cold) - Neurological Exam Neurological exam: Present: altered (Patient actively dying. Unresponsive) - Psychiatric Psychiatric exam: Present: agitated (agitated at times) - Skin Skin exam: Present: pallor, warm Palliative Quality Palliative Quality: Screen for Code Status: Yes, Screen for Goals of Care: Yes, Screen for Pain: Yes, If Pain Regimen Started, Initiate Bowel Regimen: NA, Screen for Nausea/Vomitting: Yes Code Status: 04/16/19 12:14 Resuscitation Status: Active [RES] Routine Comment: Resuscitation Status: DNR-Comfort Care Consult Discharge Plan - Plan Referrals: NONE,PCP [Primary Care Provider] -
[2019-04-22] MEDS ORDERED: *HR* FentaNYL PATCH 50 MCG PATCH TD SCH (09:34)
[2019-04-22] MEDS: Acetaminophen 650 MG RECTAL SUPP RC PRN (09:57)
--- NOTE | 2019-04-22 13:18 | Event Note ---
Date of Encounter: 04/22/19 Time of Encounter: 13:00 F/U assessment from this AM. Patient resting calmer. 12 second apnea, no O2. Respirations shallow slightly labored. Patients sisters and son at bedside. Medications adjusted this AM and patient comfort has improved. Tylenol was given rectal. Full bed change and tepid bath and cool cloth provided to forehead. Family agree to plan of care. Patient actively dying. Provided family support.
[2019-04-22 20:12] VITALS: BP 80/49
--- NOTE | 2019-04-25 09:10 | Death Note ---
Discharge Sum: Summary - Date and Time Date of admission: 04/16/19 12:33 Date of : 04/22/19 Time of : 22:21 - Summary Details: Mr. Brown is a 73 year old male with a history of metastatic cancer on home [place] was admitted after found on floor at home. Brought to hospital and found to have altered mental status, MANUEL, possible UTI and Rhabdomylosis. He has history of metastatic cancer, primary site unknown, but has involvement with prostate, renal, lungs, and bone metastasis. He was treated with IV fluids and atb until cultures were back, urine culture neg. His agitation and confused worsened throughout his stay, requiring trials of SEroquel, Xanax, Haloperidol. Also went into atrial fibrillation, and Cardizem drip was initiated. He did not improve with treatment, however, this continued until family could be reached. Patient has 5 children, one daughter a few days ago. The other 4 children were contacted, and agreed that patient would not want the amount of care we were providing, and he was transitioned to DNR-comfort care. Telemetry and IV fluids were discontinued. He was started on scheduled Haloperidol,, as he was still extremely agitated. He was transitioned to [facility] care for symptom management. Symptoms stabilizzed and patient's status was transitioned to respite care awaiting family to be ready for home transition. He peacefully. - Additional Data Confirmation of as documented by pronouncing clinician: no pulse, no respirations, no heart sounds, pupils fixed and dilated Family: at bedside Attending/PCP notified?: Yes Attending physician: Janneth Dailey MD Was code activated?: No Autopsy requested?: No cloth colors examiner notified?: No Organ bank notified?: Yes Advance directives: Yes Hospice patient?: Yes Discharge Sum: Diag - PCOD Probable Cause of : Cardiac arrest Discharge Sum: Prov - Provider Primary care physician: PCP NONE Admitting clinician: Janneth Dailey Attending physician on admission: Janneth Dailey Consults: 04/16/19 12:15 Consult to Palliative Care [CONS] Routine Comment: Consulting Provider: Palliative Care [facility]ona Reason for Consult: GIP - agitation/pain Call Completed: No
== END 2019-04-22 22:21 | disposition expired | DRG 951 ==
LOC: 2ANU 12:33
PROVIDERS: ADMIT Internal Medicine Hospice and Palliative Medicine; ATTEND Internal Medicine Hospice and Palliative Medicine